=== PATIENT | female | born 1965 | race Caucasian/White ===

== ENCOUNTER 2019-03-10 09:04 | Day surgery (SDC) | payer OTHER ==
[~2019-03-10] VITALS: Ht 157.5 cm; Wt 70.3 kg
[2019-03-10 09:39] VITALS: Ht 157.5 cm; Wt 70.3 kg
[2019-03-10] MEDS ORDERED: ATORVASTATIN (09:43)
[2019-03-10] MEDS ORDERED: VITAMINS (09:43)
[2019-03-10] MEDS ORDERED: BENAZEPRIL (09:43)
[2019-03-10] MEDS ORDERED: PANTOPRAZOLE (09:43)
[2019-03-10] MEDS ORDERED: METFORMIN (09:43)
[2019-03-10] MEDS ORDERED: JARDIANCE (09:43)
[2019-03-10 09:51] VITALS: BP 128/60; PULSE 109; RESP 14
[2019-03-10] MEDS ORDERED: FENTAnyl 50 MCG/ML VIAL ONE (10:26)
[2019-03-10] MEDS ORDERED: MIDAZOLAM 1 MG/ML 2 ML INJ ONE ×2 (10:26)
[2019-03-10 10:52] VITALS: BP 115/59; RESP 16
== END 2019-03-10 12:46 | disposition home or self-care (01) ==
LOC: GIL 09:04
PROVIDERS: ATTEND Internal Medicine Gastroenterology
DX: Z12.11 Encounter for screening for malignant neoplasm of colon (principal); K64.8 Other hemorrhoids; E11.9 Type 2 diabetes mellitus without complications
CPT/HCPCS: 45378; 82962; J2250; J3010